=== PATIENT | female | born 2000 | race American Indian/Alaskan Native ===

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

== ENCOUNTER 2020-03-24 07:51 | Emergency (ER) | payer SELFPAY ==
[2020-03-24 08:46] LABS: Basophils % (Auto) 0.2 % (0.0-1.8); Hematocrit 42.4 % (30.3-42.9); Hemoglobin 14.2 gm/dl (10.1-14.3); Lymphocytes # (Auto) 1.5 K/mm3 (1.2-5.4); Lymphocytes % (Auto) 10.1 % (13.4-35.0); Mean Corpuscular HGB Conc 34 % (30-34); Mean Corpuscular Volume 91 fl (79-97); Monocytes # (Auto) 1.1 K/mm3 (0.0-0.8); Monocytes % (Auto) 7.3 % (0.0-7.3); Platelet Count 297 K/mm3 (140-440); Red Blood Count 4.64 M/mm3 (3.65-5.03); Red Cell Distribution Width 13.8 % (13.2-15.2)
[2020-03-24 09:06] LABS: BUN/Creatinine Ratio 14; Blood Urea Nitrogen 10 mg/dL (7-17)
[2020-03-24 09:07] LABS: Alanine Aminotransferase 14 units/L (7-56); Hemolysis Index 6
[2020-03-24 09:51] LABS: Amorphous Crystals,Urine 3+; Bilirubin,Urine NEG (Negative); Blood,Urine NEG (Negative); Color,Urine Amber (Yellow); Mucus,Urine FEW /HPF
[2020-03-24 09:53] LABS: HCG Qualitative,Urine Negative (Negative)
--- NOTE | 2020-03-24 10:53 | Event Note ---
ED Screening Note Date of service: 03/24/20 Time: 10:52 ED Screening Note: Patient complains of nausea and vomiting with epigastric pain for the past 3 days She denies any diarrhea or stool changes White count noted to be elevated at 14.9 Anion gap is 21 Patient appears very anxious and is slightly hyperventilating Patient does have epigastric tenderness and left upper quadrant tenderness on exam Lung sounds are clear This initial assessment/diagnostic orders/clinical plan/treatment(s) is/are subject to change based on patients health status, clinical progression and re- assessment by fellow clinical providers in the ED. Further treatment and workup at subsequent clinical providers discretion. Patient/guardian urged not to elope from the ED as their condition may be serious if not clinically assessed and managed. Initial orders include: Further assessment
[2020-03-24] MEDS ORDERED: SODIUM CHLORIDE 0.9% 1000 ML 1,000 ML IV ONE (11:06)
[2020-03-24] MEDS ORDERED: MORPHINE 2 MG/1 ML INJ IV ONE (11:06)
[2020-03-24] MEDS ORDERED: ONDANSETRON 4 MG/2 ML INJ IV ONE (11:06)
--- NOTE | 2020-03-24 11:32 | Emergency Department Report ---
ED General Adult HPI - General Chief complaint: Nausea/Vomiting/Diarrhea Stated complaint: N/V Time Seen by Provider: 03/24/20 10:46 Source: patient Mode of arrival: Ambulatory Limitations: No Limitations - History of Present Illness Initial comments: Patient is a 19-year-old female presents emergency room with complaints of nausea and vomiting that began 2 days ago. She states that she is not able to tolerate p.o. intake. She has associated epigastric abdominal pain. She denies any diarrhea, fever, cough, shortness of breath, urinary symptoms. She does not report any vaginal discharge or irritation, melena, hematochezia, hematemesis. She denies any sick contact, recent travel, recent antibiotics, spoiled or bad foods. She denies any past medical history. She denies allergies to medications. She denies any abdominal surgical history. - Related Data Previous Rx's Medication Instructions Recorded Last Taken Type Ibuprofen [Motrin] 600 mg PO Q8H PRN #12 tablet 03/27/18 Unknown Rx Hyoscyamine Subl [Levsin Sl 0.125 0.125 mg SL Q6HR PRN #10 tablet 03/24/20 Unknown Rx TAB] Ondansetron [Zofran Odt] 4 mg PO Q8HR PRN #10 tab.rapdis 03/24/20 Unknown Rx Allergies Allergy/AdvReac Type Severity Reaction Status Date / Time No Known Allergies Allergy Unverified 03/27/18 13:20 ED Review of Systems ROS: Stated complaint: N/V Other details as noted in HPI Comment: All other systems reviewed and negative ED Past Medical Hx - Past Medical History Previous Medical History?: No - Surgical History Past Surgical History?: No - Social History Smoking Status: Current Every Day Smoker - Medications Home Medications: Home Medications Medication Instructions Recorded Confirmed Last Taken Type Ibuprofen [Motrin] 600 mg PO Q8H PRN #12 tablet 03/27/18 Unknown Rx Hyoscyamine Subl [Levsin Sl 0.125 0.125 mg SL Q6HR PRN #10 tablet 03/24/20 Unknown Rx TAB] Ondansetron [Zofran Odt] 4 mg PO Q8HR PRN #10 tab.rapdis 03/24/20 Unknown Rx ED Physical Exam - General Limitations: No Limitations General appearance: alert, in no apparent distress - Head Head exam: Present: atraumatic, normocephalic - Eye Eye exam: Present: normal appearance - ENT ENT exam: Present: mucous membranes dry - Respiratory Respiratory exam: Present: normal lung sounds bilaterally. Absent: respiratory distress, wheezes, rales, rhonchi, stridor, chest wall tenderness, accessory muscle use, decreased breath sounds, prolonged expiratory - Cardiovascular Cardiovascular Exam: Present: regular rate, normal rhythm, normal heart sounds. Absent: systolic murmur, diastolic murmur, rubs, gallop - GI/Abdominal GI/Abdominal exam: Present: soft, tenderness (epigastric), normal bowel sounds. Absent: distended, guarding, rebound, rigid - Neurological Exam Neurological exam: Present: alert, oriented X3 - Psychiatric Psychiatric exam: Present: normal affect, normal mood - Skin Skin exam: Present: warm, dry, intact ED Course Vital Signs 03/24/20 03/24/20 03/24/20 07:58 10:52 12:06 Temperature 98.5 F Pulse Rate 74 69 Respiratory 16 16 18 Rate Blood Pressure 135/88 124/78 O2 Sat by Pulse 100 99 Oximetry 03/24/20 03/24/20 14:53 14:54 Temperature Pulse Rate 56 L Respiratory 18 Rate Blood Pressure 111/76 O2 Sat by Pulse 99 99 Oximetry ED Medical Decision Making - Lab Data Result diagrams: 03/24/20 08:23 03/24/20 08:23 - Radiology Data Radiology results: report reviewed CT OF THE ABDOMEN AND PELVIS WITH INTRAVENOUS CONTRAST INDICATION / CLINICAL INFORMATION: Epigastric pain with nausea, vomiting and elevated white blood cell count. TECHNIQUE: The patient received 100 cc Omnipaque [address] scans at this location are performed using CT dose reduction for ALARA by means of automated exposure control. COMPARISON: None available. FINDINGS: ABDOMEN: The liver, spleen, gallbladder, bile ducts, pancreas, adrenal glands, kidneys and bowel demonstrate no significant abnormality. No adenopathy is seen. The lung bases are clear. PELVIS: The distal ureters and urinary bladder are normal. The uterus and adnexal regions are unremarkable. No abnormal mass or fluid collection is seen. There is no evidence of appendicitis or diverticulitis. There is an umbilical piercing. No osseous abnormality is seen. IMPRESSION: No acute abnormality is identified. Signer Name: Dinesh Helms MD Signed: 03/24/2020 2:40 PM Workstation Name: [id number] Transcribed By: RT Dictated By: Dinesh Helms MD Electronically Authenticated By: Dinesh Helms MD Signed Date/Time: 03/24/20 1440 DD/ 1436 TD/TT: - Medical Decision Making Patient is a 19-year-old female presents emergency room with complaints of nausea and vomiting that began 2 days ago. She states that she is not able to tolerate p.o. intake. She has associated epigastric abdominal pain. She denies any diarrhea, fever, cough, shortness of breath, urinary symptoms. She does not report any vaginal discharge or irritation, melena, hematochezia, hematemesis. She denies any sick contact, recent travel, recent antibiotics, spoiled or bad foods. She denies any past medical history. She denies allergies to medications. She denies any abdominal surgical history. Vitals are stable. On exam patient has epigastric abdominal tenderness palpation, no guarding, no rebound, no rigidity, normal bowel sounds, no peritoneal signs. Labs significant for white blood cell count of 14.9, otherwise stable. UA shows evidence of dehydration, she has small amount of white blood cells, no leukocyte esterase, no nitrites, patient is not having urinary symptoms, do not suspect UTI. CT abdomen pelvis with IV contrast No acute abnormality is identified. Patient most likely presenting with gastritis, do not suspect acute infectious abdominal pathology. Patient given prescription for Levsin and Zofran. Advised patient that she needs to be reexamined by a primary care physician within the next 2 days, patient verbalized understanding. Advised patient. Please take medication as prescribed. Increase your water intake. Eat a bland diet and slowly advance your diet as tolerated. Avoid anything greasy or sugary. Follow-up with a primary care doctor for reexamination. Return the emergency ro om immediately for any new or worsening symptoms. - Differential Diagnosis Pancreatitis, hepatitis, bowel obstruction, appendicitis, UTI, gastritis Critical care attestation.: If time is entered above; I have spent that time in minutes in the direct care of this critically ill patient, excluding procedure time. ED Disposition Clinical Impression: Epigastric abdominal pain Nausea and vomiting Qualifiers: Vomiting type: unspecified Vomiting Intractability: non-intractable Qualified Code(s): R11.2 - Nausea with vomiting, unspecified Disposition: DC-01 TO HOME OR SELFCARE Is pt being admited?: No Does the pt Need Aspirin: No Condition: Stable Instructions: Gastritis (ED) Additional Instructions: Please take medication as prescribed. Increase your water intake. Eat a bland diet and slowly advance your diet as tolerated. Avoid anything greasy or sugary. Follow-up with a primary care doctor for reexamination. Return the emergency room immediately for any new or worsening symptoms. Prescriptions: Hyoscyamine Subl [Levsin Sl 0.125 TAB] 0.125 mg SL Q6HR PRN #10 tablet PRN Reason: abdominal cramping/diarrhea Ondansetron [Zofran Odt] 4 mg PO Q8HR PRN #10 tab.rapdis PRN Reason: Nausea And Vomiting Referrals: MITCH BURGESS MD [Staff Physician] - 2-3 Days [facility] [Provider Group] - 2-3 Days [facility] [place] [Outside] - 2-3 Days Time of Disposition: 14:56 Print Language: ROMANIAN
--- NOTE | 2020-03-24 14:44 | Cat Scan Report ---
CT OF THE ABDOMEN AND PELVIS WITH INTRAVENOUS CONTRAST INDICATION / CLINICAL INFORMATION: Epigastric pain with nausea, vomiting and elevated white blood cell count. TECHNIQUE: The patient received 100 cc Omnipaque [address] scans at this location are performed using CT dose reduction for ALARA by means of automated exposure control. COMPARISON: None available. FINDINGS: ABDOMEN: The liver, spleen, gallbladder, bile ducts, pancreas, adrenal glands, kidneys and bowel demo nstrate no significant abnormality. No adenopathy is seen. The lung bases are clear. PELVIS: The distal ureters and urinary bladder are normal. The uterus and adnexal regions are unremar kable. No abnormal mass or fluid collection is seen. There is no evidence of appendicitis or divertic ulitis. There is an umbilical piercing. No osseous abnormality is seen. IMPRESSION: No acute abnormality is identified. Signer Name: Dinesh Helms MD Signed: 03/24/2020 2:40 PM Workstation Name: [id number]
[2020-03-24 14:54] VITALS: BP 111/76
== END 2020-03-24 15:16 | disposition home or self-care (01) ==
LOC: ED 07:51
DX: R10.13 Epigastric pain (principal); R11.2 Nausea with vomiting, unspecified; F17.200 Nicotine dependence, unspecified, uncomplicated; Z79.899 Other long term (current) drug therapy
CPT/HCPCS: 36415; 74177; 80053; 81001; 81025; 83690; 85025; 87086; 96361; 96374; 96375; 99284; J2270; J2405; J7030; Q9967

== ENCOUNTER 2022-01-23 16:36 | Emergency (ER) | payer SELFPAY ==
[2022-01-23 16:48] VITALS: BP 131/94
[2022-01-23 17:27] LABS: Basophils % (Auto) 0.3 % (0.0-1.8); Eosinophils % (Auto) 0.2 % (0.0-4.3); Hematocrit 48.1 % (30.3-42.9); Hemoglobin 15.8 gm/dl (10.1-14.3); Lymphocytes % (Auto) 17.8 % (13.4-35.0); Mean Corpuscular HGB Conc 33 % (30-34); Mean Corpuscular Volume 92 fl (79-97); Monocytes # (Auto) 0.7 K/mm3 (0.0-0.8); Monocytes % (Auto) 6.4 % (0.0-7.3); Platelet Count 413 K/mm3 (140-440); Red Blood Count 5.26 M/mm3 (3.65-5.03); Red Cell Distribution Width 13.9 % (13.2-15.2)
[2022-01-23 17:42] LABS: BUN/Creatinine Ratio 15; Blood Urea Nitrogen 12 mg/dL (7-17); Calcium 10.4 mg/dL (8.4-10.2); Hemolysis Index 5
[2022-01-23 18:50] LABS: HCG Qualitative,Urine Negative (Negative)
[2022-01-23 18:56] LABS: Bilirubin,Urine NEG (Negative); Blood,Urine NEG (Negative); Color,Urine Amber (Yellow); Mucus,Urine 3+ /HPF
[2022-01-23] MEDS ORDERED: KETOROLAC 30 MG/1 ML INJ IV ONE (18:58)
[2022-01-23] MEDS ORDERED: SODIUM CHLORIDE 0.9% 1000 ML 1,000 ML IV ONE (18:58)
[2022-01-23] MEDS ORDERED: ONDANSETRON 4 MG/2 ML INJ IV ONE (18:58)
[2022-01-23] MEDS ORDERED: FAMOTIDINE 20 MG/2 ML INJ IV ONE (18:59)
[2022-01-23] MEDS ORDERED: METOCLOPRAMIDE 10 MG/2 ML INJ IV ONE (20:27)
[2022-01-23] MEDS ORDERED: diphenhydrAMINE 50 MG/ML VIAL IV ONE (20:27)
--- NOTE | 2022-01-23 20:28 | Emergency Department Report ---
ED Abdominal Pain HPI - General Chief Complaint: Nausea/Vomiting/Diarrhea Stated Complaint: POSS DEHYDRATION/VOMITING/CP Time Seen by Provider: 01/23/22 18:19 Source: patient Mode of arrival: Ambulatory Limitations: No Limitations - History of Present Illness Initial Comments: 21 yo black female with no pmh presents to the emergency department for evalu ation of 6 day history of persistent n/v. She states that she started her period on Thursday and as usual she started to have severe abdominal pain/cramping and n/v. She states that she was seen by her dicer operator who started her on control pills to help manage symptoms. She states that abdominal cramping improved but n/v has been persistent and unrelieved. She denies fever, diarrhea, dysuria, and vaginal discharge. MD Complaint: abdominal pain -: Gradual, days(s) (6) Location: epigastric Radiation: none Migration to: no migration Severity scale (0 -10): 10 Quality: cramping, aching Consistency: intermittent Improves With: movement Associated Symptoms: nausea, vomiting, diarrhea. denies: fever, chills, dysuria, hematemesis, hematochezia, melena, hematuria, anorexia, syncope - Related Data LMP (females 10-50): this week Previous Rx's Medication Instructions Recorded Last Taken Type Ibuprofen [Motrin] 600 mg PO Q8H PRN #12 tablet 03/27/18 Unknown Rx Hyoscyamine Subl [Levsin Sl 0.125 0.125 mg SL Q6HR PRN #10 tablet 03/24/20 Unknown Rx TAB] Ondansetron [Zofran Odt] 4 mg PO Q8HR PRN #10 tab.rapdis 03/24/20 Unknown Rx Metoclopramide [Reglan] 10 mg PO TID PRN #30 tab 01/23/22 Unknown Rx Ondansetron [Zofran Odt] 4 mg PO Q8HR #12 tab.rapdis 01/23/22 Unknown Rx Allergies Allergy/AdvReac Type Severity Reaction Status Date / Time No Known Allergies Allergy Unverified 03/27/18 13:20 ED Review of Systems ROS: Stated complaint: POSS DEHYDRATION/VOMITING/CP Other details as noted in HPI Comment: All other systems reviewed and negative Constitutional: denies: chills, fever, weakness ENT: denies: congestion Respiratory: denies: shortness of breath, wheezing Cardiovascular: denies: chest pain, palpitations, dyspnea on exertion, orthopnea, edema, syncope, paroxysmal nocturnal dyspnea Gastrointestinal: denies: abdominal pain, nausea, vomiting Genitourinary: denies: urgency, dysuria, frequency, hematuria, discharge Musculoskeletal: denies: back pain Skin: denies: rash, lesions Neurological: denies: headache, weakness, numbness, paresthesias ED Past Medical Hx - Past Medical History Previous Medical History?: No - Surgical History Past Surgical History?: No - Social History Smoking Status: Current Every Day Smoker - Medications Home Medications: Home Medications Medication Instructions Recorded Confirmed Last Taken Type Ibuprofen [Motrin] 600 mg PO Q8H PRN #12 tablet 03/27/18 Unknown Rx Hyoscyamine Subl [Levsin Sl 0.125 0.125 mg SL Q6HR PRN #10 tablet 03/24/20 Unknown Rx TAB] Ondansetron [Zofran Odt] 4 mg PO Q8HR PRN #10 tab.rapdis 03/24/20 Unknown Rx Metoclopramide [Reglan] 10 mg PO TID PRN #30 tab 01/23/22 Unknown Rx Ondansetron [Zofran Odt] 4 mg PO Q8HR #12 tab.rapdis 01/23/22 Unknown Rx ED Physical Exam - General Limitations: No Limitations General appearance: alert, in no apparent distress - Head Head exam: Present: atraumatic, normocephalic - Eye Eye exam: Present: normal appearance. Absent: conjunctival injection - Neck Neck exam: Present: normal inspection, full ROM. Absent: tenderness, meningismus, lymphadenopathy - Respiratory Respiratory exam: Present: normal lung sounds bilaterally. Absent: respiratory distress, wheezes, rales, rhonchi, chest wall tenderness - Cardiovascular Cardiovascular Exam: Present: tachycardia, normal heart sounds - GI/Abdominal GI/Abdominal exam: Present: soft, tenderness (epigstric), normal bowel sounds. Absent: distended, guarding, rebound, rigid - Extremities Exam Extremities exam: Present: normal inspection, full ROM, normal capillary refill. Absent: tenderness, pedal edema, joint swelling, calf tenderness - Back Exam Back exam: Present: normal inspection. Absent: tenderness, CVA tenderness (R), CVA tenderness (L), vertebral tenderness - Neurological Exam Neurological exam: Present: alert, oriented X3, normal gait - Psychiatric Psychiatric exam: Present: normal affect, normal mood - Skin Skin exam: Present: warm, dry, intact, normal color ED Course Vital Signs 01/23/22 16:46 Temperature 98.1 F Pulse Rate 106 H Respiratory 20 Rate Blood Pressure 131/94 O2 Sat by Pulse 100 Oximetry - Reevaluation(s) Reevaluation #1: 01/23/22 20:28 Abdominal pain resolved, but nausea only minimally improved. ED Medical Decision Making - Lab Data Result diagrams: 01/23/22 17:11 01/23/22 17:11 - Medical Decision Making 21 yo black female with no pmh presents to the emergency department for evaluation of 6 day history of persistent n/v. She states that she started her period on Thursday and as usual she started to have severe abdominal pain/cramping and n/v. She states that she was seen by her dicer operator who started her on control pills to help manage symptoms. She states that abdominal cramping improved but n/v has been persistent and unrelieved. She denies fever, diarrhea, dysuria, and vaginal discharge. No gross abnormalities noted on exam or labs. Symptoms resolved after medications. Patient advised to take medications as prescribed and follow up with pcp or dicer operator for further evaluation and management. He is advised to return to ed for any concerning symptoms. She verbalized understanding of and agreement with plan of care. Critical care attestation.: If time is entered above; I have spent that time in minutes in the direct care of this critically ill patient, excluding procedure time. ED Disposition Clinical Impression: Nausea & vomiting Qualifiers: Vomiting type: unspecified Qualified Code(s): R11.2 - Nausea with vomiting, unspecified Abdominal pain Qualifiers: Abdominal location: epigastric Qualified Code(s): R10.13 - Epigastric pain Disposition: 01 HOME / SELF CARE / HOMELESS Is pt being admited?: No Does the pt Need Aspirin: No Condition: Stable Instructions: Nausea and Vomiting, Adult, [id number], Abdominal Pain, Adult, [id number] Additional Instructions: Take medication as prescribed. Drink plenty of noncaffeinated fluids. Follow- up primary care provider or [facility] if worsening symptoms. Return to the emergency department as needed. Prescriptions: Metoclopramide [Reglan] 10 mg PO TID PRN #30 tab PRN Reason: Nausea And Vomiting Ondansetron [Zofran Odt] 4 mg PO Q8HR #12 tab.eula Referrals: MITCH BURGESS MD [Primary Care Provider] - 3-5 Days Forms: Work/School Release Form(ED) Time of Disposition: 20:50
== END 2022-01-23 21:43 | disposition home or self-care (01) ==
LOC: ED 16:36
DX: R11.2 Nausea with vomiting, unspecified (principal); R10.9 Unspecified abdominal pain; Z79.899 Other long term (current) drug therapy; F17.200 Nicotine dependence, unspecified, uncomplicated
CPT/HCPCS: 36415; 80048; 81001; 81025; 85025; 96361; 96374; 96375; 99283; J1200; J1885; J2405; J2765; J3490; J7030